=== PATIENT | female | born 1980 | race African-American/Black ===

== ENCOUNTER → 2019-02-27 | Outpatient (CLI) | payer OTHER | LOC: MHCPAIN 13:06 | DX: M54.12 Radiculopathy, cervical region (principal); M47.812 Spondylosis without myelopathy or radiculopathy, cervical region | CPT/HCPCS: G0463 ==

== ENCOUNTER → 2019-03-08 | Outpatient (CLI) | payer OTHER | LOC: MHCPAIN 07:56 | DX: M50.90 Cervical disc disorder, unspecified, unspecified cervical region (principal); M50.20 Other cervical disc displacement, unspecified cervical region ==

== ENCOUNTER → 2019-03-19 | Outpatient (CLI) | payer OTHER | LOC: MHCPAIN 10:38 | DX: M54.12 Radiculopathy, cervical region (principal); M47.812 Spondylosis without myelopathy or radiculopathy, cervical region | CPT/HCPCS: G0463 ==

== ENCOUNTER → 2019-03-29 | Outpatient (CLI) | payer OTHER | LOC: MHCPAIN 13:26 | DX: M50.20 Other cervical disc displacement, unspecified cervical region (principal); M54.2 Cervicalgia | CPT/HCPCS: J1100; Q9967 ==

== ENCOUNTER 2019-04-26 14:22 | Emergency (ER) | payer OTHER ==
[~2019-04-26] VITALS: Ht 167.6 cm; Wt 100.0 kg
[2019-04-26] MEDS ORDERED: TOPAMAX 25MG25 M1 PO (14:33)
[2019-04-26] MEDS ORDERED: AMITRIPTYLINE H50 M1 PO (14:34)
[2019-04-26 15:37] LABS: BASO # 0.1 (0.0-0.2); BASO % 0.5 % (0.0-2.0); EOS # 0.6 (0.0-0.7); EOS % 5.3 % (0-4.0); GRAN # 5.8 (1.4-6.5); GRAN % 52.2 % (42.2-75.2); HEMATOCRIT 48.4 % (37.0-47.0); LYMPH # 3.6 (1.2-3.4); LYMPH % 32.7 % (20.0-51.0); MEAN CELL VOLUME 90 fl (80.0-100.0); MEAN CORPUSCULAR HEMOGLOBIN 30 pg (27.0-31.0); MEAN CORPUSCULAR HGB CONC 33 g/dl (33.0-37.0); MEAN PLATELET VOLUME 10.8 fl (7.4-10.4); MONO % 8.8 % (1.7-9.3); PLATELET COUNT 228 K/mm3 (130-400); RED BLOOD COUNT 5.37 M/mm3 (4.10-5.30); REDCELL DISTRIBUTION WIDTH-CV 12.5 % (11.5-14.5)
[2019-04-26 16:08] LABS: TROPONIN-I < 0.012 ng/mL (0.000-0.035)
[2019-04-26 16:23] LABS: ALANINE AMINOTRANSFERASE 47 U/L (4-34); ALBUMIN 4.2 gm/dL (3.5-5.0); ALKALINE PHOSPHATASE 77 U/L (50-136); ANION GAP 10 mmol/L (7-16); AST,SGOT 34 U/L (15-37); BILIRUBIN,TOTAL 0.5 mg/dL (0.0-1.0); BLOOD UREA NITROGEN 7 mg/dL (7-17); CARBON DIOXIDE 22 mmol/L (22-30); CHLORIDE 110 mmol/L (98-107); CREATININE, serum 0.74 (0.52-1.25); GLUCOSE 81 mg/dL (74-106); POTASSIUM 5.1 mmol/L (3.4-5.0); SODIUM 142 mmol/L (137-145); TOTAL PROTEIN 7.9 gm/dL (6.4-8.2)
[2019-04-26 16:58] VITALS: BP 113/62; PULSE 78; TEMP 98
== END 2019-04-26 16:59 | disposition home or self-care (01) ==
LOC: COL.ER 14:22
PROVIDERS: Family Medicine
DX: M25.512 Pain in left shoulder (principal)
CPT/HCPCS: J1885